=== PATIENT | male | born 1985 | race Caucasian/White ===

== ENCOUNTER 2021-04-18 23:30 | Emergency (ER) | payer MEDICAID, SELFPAY ==
[2021-04-18 23:31] VITALS: BP 189/164; PULSE 97; RESP 18; TEMP 36.8; O2SAT 100; BMI 25.7
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
[2021-04-19] MEDS: Ibuprofen 600 MG Tablet PO (00:40)
[2021-04-19] MEDS: Cephalexin 250 MG Capsule 500 MG PO (00:40)
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
[2021-04-19 01:52] VITALS: BP 141/81
== END 2021-04-19 01:57 | disposition home or self-care (01) ==
PROVIDERS: Emergency Provider Emergency Medicine; PCP Family Medicine Geriatric Medicine
DX: S50.822A Blister (nonthermal) of left forearm, initial encounter (principal); L03.114 Cellulitis of left upper limb; V49.9XXA Car occupant (driver) (passenger) injured in unspecified traffic accident, initial encounter; W22.10XA Striking against or struck by unspecified automobile airbag, initial encounter; Y93.9 Activity, unspecified; Y92.9 Unspecified place or not applicable; Y99.9 Unspecified external cause status; F17.210 Nicotine dependence, cigarettes, uncomplicated
CPT/HCPCS: 73090; 99283

== ENCOUNTER → 2022-07-21 | Outpatient (CLI) | payer MEDICAID, SELFPAY | END | disposition home or self-care (01) | LOC: LABSPEC 16:05 | PROVIDERS: PCP Family Medicine Geriatric Medicine; Referring Provider Physician Assistant; Visit Provider Physician Assistant | DX: J02.9 Acute pharyngitis, unspecified (principal) | CPT/HCPCS: 87070 ==

== ENCOUNTER 2022-08-02 23:42 | Emergency (ER) | payer MEDICAID, SELFPAY ==
[2022-08-02 23:42] VITALS: BP 169/106; PULSE 119; RESP 17; TEMP 36.6; O2SAT 99; BMI 23.3
[2022-08-03 00:02] VITALS: BP 156/105
[2022-08-03] MEDS: Orphenadrine 60 MG/2 ML Ampul IM (00:47)
[2022-08-03 01:39] LABS: Bacteria 0 SEEN /hpf (None Seen); Mucous, Urine 0 SEEN /hpf (<or=2+); Red Blood Cells-Urine 0 SEEN /hpf (0-5); Squamous Epithelial Cells - UA 0 SEEN /hpf (0-5); White Blood Cells 0 SEEN /hpf (0-5)
[2022-08-03 01:44] LABS: Color, Urine Yellow (Yellow); Glucose, Dipstick Normal (Normal); Ketone-Dipstick 5 mg/dl (Negative); Leukocyte Esterase-Dipstick 25 /ul (Negative); Nitrite-Dipstick Negative (Negative); Occult Blood-Urine Negative /ul (Negative); Protein-Dipstick Negative (Negative); Specific Gravity, Urine 1.025 (1.002-1.030); Urine Clarity Clear (Clear); Urine Urobilinogen Normal (Normal)
[2022-08-03 01:45] LABS: Urine Bilirubin Dipstick 1 mg/dL (Negative)
--- NOTE | 2022-08-03 02:32 | EDS_ITS ---
HPI History of Present Illness Chief Complaint: Back Informant: patient Narrative Narrative: Patient is a 37-year-old male presenting with right-sided back pain. He states it comes in spasms and is sharp and stabbing in nature. Does not radiate. Sometimes he feels short of breath because the spasms make it feel like it is hard for him to breathe. Denies any urinary symptoms. Does have some associated nausea. Took ibuprofen prior to arrival. Notes he has been sleeping his girlfriend's house on an air mattress for the past 2 nights and think that is what triggered this. Is also concerned because he was recently told by his primary care doctor something about having hepatitis B and is worried this pain could be related. Patient denies any history of IV drug use but does have multiple present tattoos. Denies any social abdominal pain. No other c omplaints at this time. PFSH PFSH Home Medications naproxen 500 mg tablet 500 mg PO BID PRN #20 tabs 04/09/16 [Rx Last Taken Unknown] cephalexin 500 mg capsule 500 mg PO Q6 #28 caps 04/19/21 [Rx Last Taken Unknown] ibuprofen 600 mg tablet 600 mg PO Q6H PRN PRN Pain Score 1-04/19 #20 tabs 04/19/21 [Rx Last Taken Unknown] sulfamethoxazole 800 mg-trimethoprim 160 mg tablet (Bactrim DS) 1 tab PO BID #14 tabs 04/19/21 [Rx Last Taken Unknown] cyclobenzaprine 10 mg tablet 10 mg PO TID PRN Muscle Spasm #20 TABLETS 08/03/22 [Rx Last Taken Unknown] Allergy/AdvReac Type Severity Reaction Status Date / Time No Known Allergies Allergy Verified 07/21/22 09:22 Family History Grandfather Cancer Father Kidney disease Social History Smoking Status: Current every day smoker tobacco type: cigarettes alcohol intake: never ROS ROS ED Constitutional Constitutional ED: Denies fever(s) Cardiovascular Cardiovascular: Denies chest pain Respiratory/Chest Respiratory/Chest: Denies dyspnea or dyspnea on exertion Gastrointestinal Gastrointestinal: Denies abdominal pain, nausea or vomiting Musculoskeletal Musculoskeletal: Reports back pain; Denies neck pain Integumentary Denies rash Neurologic Neurologic: Denies weakness Hematologic/Lymphatic Hematologic/Lymphatic: Denies easy bleeding or easy bruising EXAM Physical Exam Const Vital Signs: 08/02/22 23:42 08/03/22 00:02 Temperature 98 F Temperature Source Temporal Pulse Rate 119 H Respiratory Rate 17 Blood Pressure 169/106 H 156/105 H Blood Pressure Mean 127 122 Pulse Ox 99 Oxygen Delivery Method Room Air Positive well nourished and well developed General Appearance ED: well developed and NAD; Negative for pallor HEENT Reports moist mucous membranes Eyes PERRL and EOMs intact bilaterally Neck supple Neck Narrative: No nuchal rigidity Resp normal respiratory effort and clear to auscultation bilaterally Cardio regular rhythm and no murmurs Rate: tachycardic GI normal to inspection, nondistended, normoactive bowel sounds and soft to palpation Palpation: Negative for guarding Back/Spine General Back: Negative for CVA tenderness Thoracic Spine / Upper Back: paraspinal muscle tenderness right Lumbar Spine / Lower Back: ROM limited and straight leg raise negative bilaterally Extremity normal to inspection General Extremety ED: Negative for edema General Extremity: Negative for edema Neuro oriented x3 Sensorium / Orientation: alert Psych mental status grossly normal Skin no rashes or lesions noted General Skin Exam: Negative for jaundice or pallor MDM MDM MDM Narrative Medical decision making narrative: Patient is evaluated for sharp stabbing right back pain. He appears to be having spasms in the room. Physical exam and HPI is highly consistent with muscle skeletal back pain/spasms. Seems to be elicited by sleeping on his girlfriends air mattress. He has normal neurologic exam. Is not any red flag symptoms for cauda equina syndrome. He is not have any fever or other infectious symptoms. He does not have any midline tenderness and I do not think any imaging is indicated emergently. He is tachycardic upon arrival. He is given a dose of IM Norflex in the ER for symptoms. Patient took an NSAID prior to arrival. Urinalysis is obtained to make sure there is no signs of hematuria or infection that could also be causing back pain. This is normal. Patient will be treated with NSAIDs and Flexeril for presumed back spasms. Is given return precautions. Patient was concerned about a possible diagnosis of hepatitis B infection. I did review his lab work on my chart which showed that his surface antibody was positive but his core antibody was negative. I informed him that this is more consistent with a prior vaccination for hepatitis B. His hepatitis C test was negative. Patient felt reassured with this information. Lab Data Attestation: I reviewed the patient's lab results. Labs: Laboratory Results - last 24 hr 08/03/22 01:34 Urine Color Yellow Urine Clarity Clear Urine pH 5.0 Ur Specific [place] 1.025 Urine Protein Negative Urine Glucose (UA) Normal Urine Ketones 5 H Urine Occult Blood Negative Urine Nitrite Negative Urine Bilirubin 1 H Urine Urobilinogen Normal Ur Leukocyte Esterase 25 H Urine RBC 0 SEEN Urine WBC 0 SEEN Ur Squamous Epith Cells 0 SEEN Urine Bacteria 0 SEEN Urine Mucus 0 SEEN Discharge Plan Triage Chief Complaint: Back ED Provider: Cathy Gatica Dx/Rx/DC Orders Clinical Impression: Back muscle spasm Instructions: ED Back Spasm, No Trauma Prescriptions: New cyclobenzaprine 10 mg tablet 10 mg PO TID PRN (Reason: Muscle Spasm) Qty: 20 0RF No Action naproxen 500 MG tablet 500 mg PO BID PRN Qty: 20 0RF ibuprofen 600 mg tablet 600 mg PO Q6H PRN PRN (Reason: Pain Score 1-10/10) Qty: 20 0RF cephalexin 500 mg capsule 500 mg PO Q6 Qty: 28 0RF sulfamethoxazole-trimethoprim [Bactrim DS] 800-160 mg tablet 1 tab PO BID Qty: 14 0RF Primary Care Provider: Jaren Patterson Chi Referrals: Jaren Patterson Chi, MD [Primary Care Provider] - Activity Restrictions/Additional Instructions: Alternate ibuprofen and Tylenol. Take muscle relaxers. Also apply heat to your back. Return to the ER with worsening progression of your symptoms. Your lab work reviewed from [facility] is consistent with prior immunization of hepatitis B. I do not think you have active hepatitis B. Disposition Disposition: Home, Self Care Discharge Date/Time: 08/03/22 02:46
== END 2022-08-03 02:46 | disposition home or self-care (01) ==
PROVIDERS: Emergency Provider Emergency Medicine; PCP Family Medicine Geriatric Medicine; Visit Provider Emergency Medicine
DX: M62.830 Muscle spasm of back (principal); M54.9 Dorsalgia, unspecified; R11.0 Nausea; R06.02 Shortness of breath; F17.210 Nicotine dependence, cigarettes, uncomplicated
CPT/HCPCS: 81001; 96372; 99282